=== PATIENT | male | born 1990 | race Caucasian/White ===

== ENCOUNTER 2018-08-15 19:07 | Emergency (ER) | payer SELFPAY ==
[~2018-08-15] VITALS: Ht 162.6 cm; Wt 78.5 kg
[2018-08-15 19:16] VITALS: BP 124/75
--- NOTE | 2018-08-15 19:19 | NUR ---
TO LOBBY A/W BED, XRAY, AMBULATORY
--- NOTE | 2018-08-15 19:26 | NUR ---
TO ED 06 WITH STEADY GAIT
--- NOTE | 2018-08-15 19:39 | NUR ---
28 YO M BIB SELF C/O 01/28 LEFT THUMB PAIN S/P FALL 1.5 HOURS AGO. PT STATES HE FELL BACKWARDS AND CAUGHT HIMSELF BY FALLING ON GROUND WITH LEFT HAND. PT STATES AFTER FALL HIS THUMB "WAS OUT OF PLACE" SO HE "POPPED IT BACK IN". -- BRUISING AND MILD SWELLING NOTED TO LEFT THUMB. UNABLE TO MOVE JOINT. CAP REFILL BRISK, <3 SECONDS. RADIAL PULSES STRONG, EQUAL BILATTERALLY. -- SKIN PINK, DRY, WARM, INTACT. -- NO OTHER INJURIES REPORTED. PMH-- DENIES RX-- MOTRIN 1 HOUR AGO. DID NOT HELP. PT POSITIONED FOR COMFORT. HOB ELEVATED. SIDE RAIL UP X1. BED IN LOWEST POSITION. VSS. NO APPARENT DISTRESS AT THIS TIME.
--- NOTE | 2018-08-15 19:50 | NUR ---
XRAY AT BEDSIDE.
[2018-08-15] MEDS ORDERED: IBUPROFEN 800 MG TAB PO ONE (20:30)
--- NOTE | 2018-08-15 20:52 | NUR ---
THUMB SPICA PLACED ON PTS RIGHT THUMB
[2018-08-15 20:56] VITALS: BP 129/81
--- NOTE | 2018-08-15 20:56 | NUR ---
Patient discharged with v/s stable. Written and verbal after care instructions given and explained. Patient alert, oriented and verbalized understanding of instructions. Ambulatory with steady gait. All questions addressed prior to discharge. ID band removed. Patient advised to follow up with PMD. Rx of Motrin given. Thumb spica placed on pt's right arm. Teaching and demonstration provided and reinforced by EMT, RN. Patient educated on indication of medication including possible reaction and side effects. Opportunity to ask questions provided and answered.
== END 2018-08-15 20:56 | disposition home or self-care (01) ==
LOC: MED 19:07
DX: S63.601A Unspecified sprain of right thumb, initial encounter (principal); X58.XXXA Exposure to other specified factors, initial encounter; Y93.89 Activity, other specified; Y92.89 Other specified places as the place of occurrence of the external cause; Y99.8 Other external cause status
CPT/HCPCS: 29125; 73130; 99283; Q0092